=== PATIENT | male | born 1960 | race Caucasian/White ===

== ENCOUNTER → 2020-06-14 | Outpatient (CLI) | payer OTHER ==
[~2020-06-14] VITALS: Ht 188 cm; Wt 93.0 kg
[~2020-06-14] MED LIST: PERCOCET 5-3251 EACH PO; VENTOLIN HFA 1818 GM INH
[2020-06-14 08:43] VITALS: BP 118/71
[2020-06-14 08:45] LABS: HEMATOCRIT 37.6 % (42.0-52.0); HEMOGLOBIN 12.3 gm/dL (14.0-18.0); MCH 28.2 pg (26.0-34.0); MCHC 32.7 g/dL (28.0-37.0); MCV 86.1 fL (80.0-100.0); MPV 6.6 fl. (7.2-11.1); NUCLEATED RBCS 0 /100WBC; PLATELET COUNT* 340 thou/uL (150-400); RBC 4.37 mil/uL (4.50-6.00); WBC 6.5 thou/uL (4.0-11.0)
[2020-06-14 08:49] LABS: CALCIUM 9.3 mg/dL (8.5-10.1); CREATININE 1.1 mg/dL (0.6-1.3); POTASSIUM 4.3 mmol/L (3.5-5.1)
[2020-06-14 08:55] LABS: APTT 25.3 Seconds (25.0-31.3); PROTIME 10.4 Seconds (9.20-11.50)
[2020-06-14 10:11] VITALS: BP 117/73
[2020-06-14 11:21] LABS: ABSOLUTE LYMPHOCYTES 1.2 thou/uL (0.8-5.3); ABSOLUTE MONOCYTES 0.7 thou/uL (0.0-1.2); ABSOLUTE NEUTROPHILS 4.6 thou/uL (1.6-8.1); PLATELET ESTIMATE ADEQUATE
--- NOTE | 2020-06-25 22:06 | PATH ---
[address] [address] PATHOLOGY RPT PROCEDURE Name: JOSHUA ZEE JR Room: [facility] MKristi.#: [id number] Admission: 06/14/20 Date of : 64 Discharge: Report #: [id number] Path Case #: [id number] [facility] Accession Number: [id number] . 01 Material submitted: . PART A: bone - BONE MARROW BIOPSY PART B: bone - BONE MARROW CLOT PART C: bone - BONE MARROW ASPIRATE SLIDES PART D: peripheral nerves - PERIPHERAL SMEAR PART E: bone - BONE MARROW FLOW . 01 Clinical history: . BONE MARROW BIOPSY 59-YEAR-OLD MAN WITH A HISTORY OF LYMPHOMA. . 02 Diagnosis: Bone marrow aspirate, biopsy, cell clot and peripheral blood: - Peripheral blood with no diagnostic abnormalities. - HYPERCELLULAR BONE MARROW WITH TRILINEAGE HEMATOPOIESIS AND INVOLVEMENT BY SMALL B-CELL LYMPHOMA WITH PLASMACYTIC DIFFERENTIATION (APPROXIMATELY 30% BONE MARROW INVOLVEMENT BY IMMUNOHISTOCHEMICAL STAINING). - See comment. (JAZLYN:jeff; 06/21/2020) PHILIPPE 06/21/2020 2159 Local . 02 Comment: Overall, the bone marrow is hypercellular for the patient's age with trilineage hematopoiesis and involvement by small B-cell lymphoma with plasmacytic differentiation. The histologic differential diagnosis includes marginal zone lymphoma and lymphoplasmacytic lymphoma. There is approximately 30% involvement by immunohistochemical staining. The patient has a reported history of lymphoma that is not otherwise specified (diagnosed elsewhere). The dyspoiesis is mild and does not meet the morphologic criteria for myelodysplasia. Correlation with clinical history, additional laboratory data and cytogenetics is recommended. (JAZLYN:jeff; 06/21/2020) . 02 Addendum: . Special studies report received from [facility], [address] [place] [address], [address], [place], [address], on case [id number], labeled with their number [id number], dated . . Cytogenetic Analysis Report . RESULT: Normal Male Karyotype 46,XY(20) . Specimen Type: [place] [address] PATHOLOGY RPT PROCEDURE Name: JOSHUA ZEE JR Room: [facility] MARCIO Noguera#: [id number] Admission: 06/14/20 Date of : 64 Discharge: Report #: [id number] Path Case #: [id number] . Indication for Study: Lymphoma . INTERPRETATION: Cytogenetic analysis revealed no evidence of an acquired clonal abnormality. These findings should be interpreted in the context of clinical and histopathologic findings. . See Flow Cytometry report [id number] for further information. . . Number of Metaphases Counted: 20 Banding: G-banding Number of Metaphase Cells Analyzed: 20 Band Level: 400 Number of Metaphase Cells Karyotyped: 2 Cultures Established: Unstimulated/Stimulated . at [employer] Iram Blancas, Ph.D., [facility] Director of Cytogenetics . Disclaimer(s): Any image(s) that accompany this report is/are a wireless sales representative image(s) only and should not be used to render a diagnosis. . Based on the resolution of this study, standard cytogenetic methodology does not routinely detect subtle or sub-microscopic rearrangements or low level mosaicism. . Performing Labs: This Test was performed at [employer]. at [address] [place] [address]. [facility] is a business unit of [employer] a wholly-owned subsidiary of [employer]. . A complete copy of the report is on file. . Professional services performed by [facility] at [address] [place] [address]. Technical services performed by [employer]. at [address] [place] [address]. . (CLW:israel 06/25/2020) . . . [place]/06/25/2020 Addendum Electronically Signed by Yohana Lobo MD, [place] [address] PATHOLOGY RPT PROCEDURE Name: JOSHUA ZEE JR Room: [facility]#: [id number] Admission: 06/14/20 Date of : 64 Discharge: Report #: [id number] Path Case #: [id number] . 02 Electronically signed: . Yohana Lobo MD, Pathologist NPI- [id number] . 01 Gross description: . A. The specimen is received in formalin, labeled "Joshua Zee core". Received is a single needle core of light lopez bone measuring 2.3 cm in length by 0.3 cm in diameter. The specimen is submitted entirely in cassette A1, following light decalcification. . B. The specimen is received in formalin, labeled "Joshua Zee clot". Received is blood coagulum measuring 3.0 x 3.0 x 0.5 cm in aggregate dimensions. The specimen is filtered and entirely submitted in cassette B1 and B2. (CAA; 06/17/2020) QAC/QAC 06/17/2020 1603 Local . 02 Microscopic: . CBC Data (06/14/20): WBC 6500 /uL, RBC 4.37, hemoglobin 12.3 g/dL, hematocrit 37.6%, MCV 86.1 fL, MCH 28.2 pg, MCHC 32.7 g/dL, RDW 15.0%, and platelet count 340,000 /uL. White blood cell differential: Segs 71%, lymphs 18%, monos 11%. . Peripheral Blood Smear: Cytomorphological examination of the Martinez's stained peripheral blood smear confirms the provided data. Red blood cells are normocytic and are without significant anisopoikilocytosis. White blood cells are predominantly segmented neutrophils and are without significant dyspoiesis or significant left shift. Lymphocytes are predominantly small, round, and mature appearing with condensed chromatin and scant cytoplasm with admixed large granular lymphocytes. On scanning, no markedly atypical lymphoid cells are seen. Monocytes are mature. Platelets are adequate in number and mainly normal in morphology with rare larger platelets noted. . Aspirate Smears: Cytomorphological examination of the Martinez's stained aspirate smears shows only disrupted spicules present. Scattered hematopoietic progenitor cells and occasional megakaryocytes are seen, therefore, this may represent a mildly hemodilute sample. The myeloid to erythroid ratio is 4:1. Full myeloid maturation is identified and is without significant dyspoiesis. Erythroid maturation is mildly dyserythropoietic with irregular nuclear contours and nuclear cytoplasmic dyssynchrony. In a 500 cell differential, there are 1% blasts (no Betzy rods are seen), 68% more differentiated myeloids, 15% erythroid precursors and 16% lymphocytes. The rare megakaryocytes are mainly normal in morphology. Lymphocytes are predominantly small, round and mature appearing with condensed chromatin and scant cytoplasm. No lymphoid aggregates or markedly atypical lymphoid cells are seen. Plasma cells are without atypia[place] [address] PATHOLOGY RPT PROCEDURE Name: JOSHUA ZEE JR Room: [facility]#: [id number] Admission: 06/14/20 Date of : 64 Discharge: Report #: [id number] Path Case #: [id number] aspirate smear shows 0/4+ iron positivity with only disrupted spicules present. No ringed sideroblasts are identified. . Core Biopsy and Cell Clot: The decalcified bone marrow core biopsy is adequate. The bone marrow is hypercellular with an overall cellularity of approximately 80%. There are large, infiltrative appearing lymphoid aggregate that appear both interstitial and possibly paratrabecular. The lymphocytes are predominantly small, round and mature appearing with condensed chromatin and scant cytoplasm. No markedly atypical lymphoid cells are seen. The background trilineage hematopoiesis shows a myeloid to erythroid ratio of 2:1. Myeloid and erythroid maturation are without significant dyspoiesis. Megakaryocytes are normal in number and both normal and abnormal in morphology. Bony trabeculae and blood vessels are unremarkable. The cell clot is predominantly blood and peripheral blood elements with no intact spicules present. . Properly controlled special stains are performed. . Block A1: Iron - 2/4+ iron positivity; Reticulin - no significant reticulin fibrosis. . Block B1: Iron - 0/4+ iron positivity with no intact spicules present. . To quantify and evaluate the infiltrative lymphoid aggregates, to confirm the flow cytometry findings, and to identify cells in a tissue architectural context, properly controlled immunohistochemical stains are performed. . Block A1: CD20 - stains the infiltrative lymphoid aggregates comprising 30% of the marrow cellularity; PAX-5 - stains the infiltrative lymphoid aggregates comprising 30% of the marrow cellularity; CD3 - highlights admixed T-cells; CD138 - stains scattered plasma cells comprising 3-5% of the marrow cellularity; [place] and lambda in situ hybridization - plasma cells and lymphoid aggregates appear kappa restricted. . Flow Cytometry: Flow cytometric immunophenotypic analysis was performed at [facility]. The diagnosis is "minor monotypic (clonal) B-cell population detected (0.4% of sample), no immunophenotypic evidence of abnormal myeloid maturation or an increased blast population, specimen characterized by hemodilution." There are 0.1% myeloid blasts. There are 0.4% abnormal B-cells that are small to intermediate in cell size and [facility] [address] [place] [address] PATHOLOGY RPT PROCEDURE Name: JOSHUA ZEE JR [id number] Admission: 06/14/20 Date of : 64 Discharge: Report #: [id number] Path Case #: [id number] characterized as CD45 positive, CD5 negative, CD10 negative, CD11c negative/positive, CD19 positive, CD20 positive, CD22 positive, CD23 negative, CD38 negative/positive, CD103 negative, FMC 7 positive, HLA-DR positive, and surface/cyto kappa positive. There are 7.6% remaining lymphocytes of which are 0.1% polyclonal B-cells. T-cells have a CD4/CD8 ratio of 0.5 and no aberrant T-cell antigen expression. No plasma cells are detected. Please see separate flow cytometry report from [facility] ([id number]). . Cytogenetics Analysis: Cytogenetic chromosomal analysis is pending at [facility] ([id number]). . (CLW:jeff; 06/21/2020) . 02 Pathologist provided ICD-10: C85.10 . 02 CPT . 679444, 780798, 607538, 969215, 447370, 767886, 323160, 498975, 953025, G55415, Q92114, T95794, L20462 Specimen Comment: A courtesy copy of this report has been sent to [phone] Specimen Comment: Report sent to Performed at: 01 [facility] [address] [place] [address] [address], [place], [place] [id number] MD Peter Breen MD Phone: [phone] Performed at: 02 [facility] [place] [address] [id number] MD Marlyn Mendoza MD Phone: [phone]
== END | disposition home or self-care (01) ==
LOC: M.RAD 07:51
PROVIDERS: Radiology Diagnostic Radiology; ATTEND Internal Medicine Hematology & Oncology
DX: C85.10 Unspecified B-cell lymphoma, unspecified site (principal); D75.89 Other specified diseases of blood and blood-forming organs; Z98.890 Other specified postprocedural states; Z79.899 Other long term (current) drug therapy; Z87.01 Personal history of pneumonia (recurrent)

== ENCOUNTER 2020-06-18 10:06 | Emergency (ER) | payer OTHER ==
[~2020-06-18] VITALS: Ht 188 cm; Wt 88.5 kg
[2020-06-18 10:35] LABS: ABSOLUTE EOSINOPHILS 0.1 thou/uL (0.0-0.7); ABSOLUTE LYMPHOCYTES 1.2 thou/uL (0.8-5.3); ABSOLUTE MONOCYTES 0.9 thou/uL (0.0-1.2); ABSOLUTE NEUTROPHILS 4.2 thou/uL (1.6-8.1); BASOPHILS 0.6 %; EOSINOPHILS 2.2 %; HEMATOCRIT 39.2 % (42.0-52.0); HEMOGLOBIN 12.9 gm/dL (14.0-18.0); MCH 28.2 pg (26.0-34.0); MCHC 32.8 g/dL (28.0-37.0); MCV 86.1 fL (80.0-100.0); MONOCYTES 13.8 %; MPV 6.7 fl. (7.2-11.1); NUCLEATED RBCS 0 /100WBC; PLATELET COUNT* 334 thou/uL (150-400); POLYS 65.4 %; RBC 4.55 mil/uL (4.50-6.00); RDW-CV 14.9 % (10.5-14.5); WBC 6.5 thou/uL (4.0-11.0)
[2020-06-18 10:45] LABS: CALCIUM 9.4 mg/dL (8.5-10.1); CREATININE 1.2 mg/dL (0.6-1.3); POTASSIUM 4.2 mmol/L (3.5-5.1)
[2020-06-18 10:48] LABS: APTT 25.2 Seconds (25.0-31.3); PROTIME 10.3 Seconds (9.20-11.50)
[2020-06-18 11:00] LABS: ALBUMIN 2.5 g/dL (3.4-5.0); CK-MB MASS 1.8 ng/mL (<0.5-3.6); MAGNESIUM 2.4 mg/dL (1.8-2.4); TOTAL BILIRUBIN 0.4 mg/dL (<0.1-1.0)
[2020-06-18] MEDS ORDERED: PERCOCET 5-3251 EACH PO (13:33)
[2020-06-18] MEDS ORDERED: VENTOLIN HFA 1818 GM INH (13:33)
[2020-06-18 13:39] VITALS: BP 135/76
--- NOTE | 2020-06-18 14:21 | EKG ---
[place] [address] ELECTROCARDIOGRAM REPORT Name: PRISCILLA ZEE Room: [facility]#: [id number] Admission: 06/18/20 Attend Phys: Discharge: 06/18/20 Date of : 64 Date of Service: 06/18/20 1014 Report #: [id number] THIS REPORT FOR: //name// [facility] ED Test Date: 2020-06-18 Test Time: 10:14:38 Pat Name: PRISCILLA ZEE Department: Room: Gender: Head Charger: DC : 1960 Requested By: Mehul Petersen Order Number: [id number] MD: Ye Ortiz Measurements Intervals [place] Rate: 90 P: 36 IA: 143 QRS: 3 QRSD: 93 T: 22 QT: 356 QTc: 436 Interpretive Statements Sinus rhythm poor r wave progression No previous ECG available for comparison Electronically Signed On 06-18-2020 14:20:53 [employer]IC [employer]UCATION ADJUNCT PROFESSOR by Ye Ortiz [email or web address] <ELECTRONICALLY SIGNED> By: Ye Ortiz MD, [facility] 06/18/20 1420 1014 1014 Ye Ortiz MD, FACC /EPI
== END 2020-06-18 13:40 | disposition home or self-care (01) ==
LOC: M.ERS 10:06
PROVIDERS: Family Medicine
DX: R07.89 Other chest pain (principal); J90 Pleural effusion, not elsewhere classified; Z86.2 Personal history of diseases of the blood and blood-forming organs and certain disorders involving the immune mechanism